=== PATIENT | female | born 1995 | race Caucasian/White ===

== ENCOUNTER 2021-07-16 13:09 | Emergency (ER) | payer OTHER, SELFPAY ==
[2021-07-16 13:16] VITALS: BP 116/73; PULSE 95; RESP 14; TEMP 36.6; O2SAT 100
--- NOTE | 2021-07-16 14:13 | ED.URI ---
HPI - URI/Sore Throat General Chief Complaint: Upper Respiratory Infection Stated Complaint: Sore Throat Time Seen by Provider: 07/16/21 14:08 Source: patient and RN notes reviewed Mode of arrival: ambulatory Limitations: no limitations History of Present Illness HPI Narrative: Patient presents today complaining of sore throat since yesterday and denies any additional symptoms to include shortness of breath, difficulty swallowing, or fever. She currently rates her pain 8/10 which increases with swallowing. She has been using some throat spray with mild relief. No recent antibiotic use. MD elicited complaint: sore throat Related Data Allergies Allergy/AdvReac Type Severity Reaction Status Date / Time No Known Allergies Allergy Verified 07/16/21 13:30 Review of Systems Review of Systems: CONSTITUTIONAL: Denies body aches, fever, chills, or sweats. EYES: Denies visual changes, redness, or discharge. ENT: Denies rhinorrhea, congestion, or otalgia.+ Sore throat CARDIOVASCULAR: Denies chest pain, palpitations, or edema. RESPIRATORY: Denies cough or dyspnea. GASTROINTESTINAL: Denies abdominal pain, nausea, vomiting, or diarrhea. GENITOURINARY: Denies dysuria or hematuria. SKIN: Denies rash, itching, or wounds. MUSCULOSKELETAL: Denies back pain, joint pain, or myalgia. NEUROLOGIC: Denies headache, numbness, tingling, or weakness. PSYCH: Denies depression or anxiety. PMFSH Comments At time of signature, I have reviewed and agree with nursing past medical, surgical, social and family history unless otherwise noted. Please see nursing chart for further information. There is no relevant family history pertinent to the presenting complaint Exam Narrative: GENERAL: Well-appearing, well-nourished, and in no acute distress. HEAD: Normocephalic, atraumatic. EYES: EOMI. No redness or drainage. Conjunctivae normal. ENT: Mucous membranes pink and moist. Nares clear. No rhinorrhea. TMs normal bilaterally. Throat moderately erythematous without edema or exudate. Uvula midline. NECK: Normal AROM. Supple. No lymphadenopathy. CHEST: No respiratory distress. Clear to auscultation. HEART: Regular rate and rhythm. No murmur appreciated. Normal peripheral pulses. EXTREMITIES: Normal range of motion. No edema. SKIN: Warm, dry, no rash. Capillary refill normal. Normal skin turgor. NEURO: No focal deficits. Alert and oriented x3. Gait steady. PSYCH: Normal affect. No signs of depression or anxiety. Course Course Level of Care: Express Care Visit Vital Signs Vital signs: Vital Signs Temperature 97.9 F 07/16/21 13:16 Pulse Rate 95 07/16/21 13:16 Respiratory Rate 14 07/16/21 13:16 Blood Pressure 116/73 07/16/21 13:16 Pulse Oximetry 100 07/16/21 13:16 Temperature 97.9 F 07/16/21 13:16 Pulse Rate 95 07/16/21 13:16 Respiratory Rate 14 07/16/21 13:16 Blood Pressure 116/73 07/16/21 13:16 Pulse Oximetry 100 07/16/21 13:16 Reviewed MDM - URI/Sore Throat Differential Diagnosis Differential diagnosis: Likely upper respiratory infection, pharyngitis and other (Strep throat) Lab Data Attestation: I reviewed the patient's lab results. Labs: Strep Screen Positive Group A Strep *(Reference Range: Negative)* Critical Care Time Critical Care Time Critical Care Time: No Discharge Plan Discharge Clinical Impression: Strep throat Patient Disposition: Home, Self-Care Condition: Stable Instructions: Strep Throat (DC) Additional Instructions: You have tested positive for strep throat today. Take the amoxicillin as prescribed until gone. You will be contagious for 48 hours after starting the antibiotic. Take an anti-inflammatory such as Aleve or ibuprofen. Follow-up with your doctor in 2 to 3 days if symptoms are not improving. Patient Language: Arabic Prescriptions: New amoxicillin 875 mg tablet 875 mg PO Q12H 10 Days Qty
== END 2021-07-16 14:21 | disposition home or self-care (01) ==
PROVIDERS: Emergency Provider Nurse Practitioner
DX: J02.0 Streptococcal pharyngitis (principal)
CPT/HCPCS: 87880; 99213; G0463

== ENCOUNTER 2021-08-22 15:51 | Emergency (ER) | payer OTHER, SELFPAY ==
[2021-08-22 15:58] VITALS: BP 115/60; PULSE 91; RESP 18; TEMP 37.1; O2SAT 100
--- NOTE | 2021-08-22 16:28 | ED.SKABFB ---
HPI - Skin/Abscess/Foreign Bdy General Chief complaint: Skin/Abscess/Foreign Body Stated complaint: lymph node on right side pain Time Seen by Provider: 08/22/21 16:00 Source: patient Mode of arrival: ambulatory Limitations: no limitations History of Present Illness HPI narrative: Jenni is a 26-year-old female patient presenting to the clinic today with complaints of sore throat and swollen lymph node x2 to 3 days. She denies any fever or chills. She reports that she has had some green nasal drainage that just started today. She denies any known exposure to anybody with strep, COVID, or influenza. Related Data Allergies Allergy/AdvReac Type Severity Reaction Status Date / Time No Known Allergies Allergy Verified 08/22/21 16:11 Review of Systems Review of Systems: Pertinent positives per HPI. Patient denies any fever, chills, rash, headache, visual changes, dizziness, shortness of breath, chest pain, palpitations, nausea, vomiting, diarrhea, constipation, abdominal pain, or any urinary issues. PMFSH Comments At the time of my signature, I reviewed and agree with the nursing past medical, surgical, social, and family history. There is no relevant family history pertinent to the patient complaint. Exam Narrative: General: Well-developed, well nourished, in no apparent distress Head: Normocephalic, atraumatic Eyes: Pupils equally round and reactive to light bilaterally, EOM intact, sclera and conjunctive clear, no discharge, lids normal Ears: TMs intact and dull, ear canals clear, no drainage, grossly hearing normal. Nose: Nares patent, clear nasal discharge, no inflammation, no sinus tenderness. Mouth: Oropharynx without lesions or masses, good dentition, MMM. Oropharynx red Neck: Supple, trachea midline, positive enlargement of right anterior cervical nodes, no thyroid masses or goiter palpable. Cardio: Regular rate and rhythm, s1 and s2 normal, no murmur appreciated. Resp: Clear to auscultation bilaterally anteriorly and posteriorly, no rhonchi, rales, wheezing or rubs Course Course Emergency Course: Portions of this record may have been created with voice recognition software. Level of Care: Express Care Visit Vital Signs Vital signs: Vital Signs Temperature 37.1 C 08/22/21 15:58 Pulse Rate 91 08/22/21 15:58 Respiratory Rate 18 08/22/21 15:58 Blood Pressure 115/60 08/22/21 15:58 Pulse Oximetry 100 08/22/21 15:58 Oxygen Delivery Room Air 08/22/21 15:58 Temperature 37.1 C 08/22/21 15:58 Pulse Rate 91 08/22/21 15:58 Respiratory Rate 18 08/22/21 15:58 Blood Pressure 115/60 08/22/21 15:58 Pulse Oximetry 100 08/22/21 15:58 Oxygen Delivery Room Air 08/22/21 15:58 Vital signs reviewed MDM - Skin/Abscess/Foreign Bdy MDM Narrative Medical decision making narrative: At the time of visit patient is resting comfortably on the exam table. She has a right anterior swollen lymph node and a sore throat. Strep screen was obtained and was for strep. I will give her a course of amoxicillin and supportive measures were discussed with the patient she voiced understanding of discharge instructions and agrees to the treatment plan. Differential Diagnosis Differential diagnosis: Likely other (Influenza, strep pharyngitis, URI, cervical lymphadenopathy) Lab Data Labs: Strep Screen Positive Group A Strep *(Reference Range: Negative)* Discharge Plan Discharge Clinical Impression: Strep pharyngitis Patient Disposition: Home, Self-Care Condition: Stable Instructions: Antibiotic Form, Strep Throat (ED) Additional Instructions: Strep screen positive in the clinic. Change toothbrush in 24 hours after the initiation of the antibiotic Take prescription medications only as prescribed-amoxicillin Increase fluids and stay well hydrated Tylenol/motrin for pain/fever Flonase and OTC antihistamines as di
== END 2021-08-22 16:37 | disposition home or self-care (01) ==
PROVIDERS: Emergency Provider Nurse Practitioner Family
DX: J02.0 Streptococcal pharyngitis (principal); E05.90 Thyrotoxicosis, unspecified without thyrotoxic crisis or storm
CPT/HCPCS: 87880; 99213; G0463

== ENCOUNTER 2021-09-12 13:31 | Emergency (ER) | payer OTHER, SELFPAY ==
--- NOTE | 2021-09-12 13:34 | ED.FEMALEGU ---
HPI - Female Genitourinary General Chief complaint: Urogenital-Female Stated complaint: Urinary Problem Time Seen by Provider: 09/12/21 13:34 Source: patient and RN notes reviewed History of Present Illness HPI Narrative: Patient is a 26-year-old female who presents the urgent care with complaints of a possible UTI due to cloudy urine and low back pain. Patient states that she was taking Azo up until this past Friday. States symptoms started on . Denies of any fever, nausea or vomiting. 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 Patient denies of any pyelonephritis, chronic UTIs or kidney stones. Denies of hematuria. No other acute complaints. No acute distress noted. Patient aware of the plan of care. Some parts of this dictation were generated by voice recognition software and may contain typographical and/or grammatical inaccuracies. Related Data Allergies Allergy/AdvReac Type Severity Reaction Status Date / Time No Known Allergies Allergy Verified 09/12/21 13:44 Review of Systems Review of Systems: CONSTITUTIONAL: Denies fever, chills, or sweats. EYES: Denies visual changes, redness, or discharge. ENT: Denies rhinorrhea, congestion, sore throat, or otalgia. CARDIOVASCULAR: Denies chest pain, palpitations, or edema. RESPIRATORY: Denies cough or dyspnea. GASTROINTESTINAL: Denies abdominal pain, nausea, vomiting, or diarrhea. GENITOURINARY: Reports of cloudy urine and left flank pain SKIN: Denies rash or itching. MUSCULOSKELETAL: Denies back pain, joint pain, or myalgia. NEUROLOGIC: Denies headache, numbness, or weakness. All other systems reviewed are negative, except as documented in HPI. PMFSH Comments At the time of my signature, I reviewed and agree with the nursing past medical, surgical, social, and family history. There is no relevant family history pertinent to the patient complaint. Exam Narrative: GENERAL: This is a well-nourished, well-developed patient, in no apparent distress. HEAD: normocephalic, atraumatic. EYES: PERRL. Sclera clear/white. Vision is grossly intact. EARS: External ears normal NOSE: External nose normal with no obvious nasal discharge, nares without redness, no rhinorrhea. THROAT: Mucous membranes moist NECK: Neck supple CARDIOVASCULAR: Regular rate and rhythm without murmurs, gallops, or rubs. RESPIRATORY: Clear to auscultation. Breath sounds equal bilaterally. No wheezes, rales, or rhonchi. GASTROINTESTINAL: Abdomen soft, non-tender, nondistended. Bowel sounds are active. SKIN: warm, intact with no suspicious lesions or rash, good texture and turgor. NEURO: awake, alert, and oriented to person, place and time. There were no obvious focal neurologic abnormalities. EXTREMITIES: No clubbing, cyanosis, or edema. BACK: Left CVA tenderness Course Course Level of Care: Express Care Visit Vital Signs Vital signs: Vital Signs Temperature 98.0 F 09/12/21 13:46 Pulse Rate 112 H 09/12/21 13:46 Respiratory Rate 16 09/12/21 13:46 Blood Pressure 113/82 09/12/21 13:46 Pulse Oximetry 100 09/12/21 13:46 Oxygen Delivery Room Air 09/12/21 13:46 Temperature 98.0 F 09/12/21 13:46 Pulse Rate 112 H 09/12/21 13:46 Respiratory Rate 16 09/12/21 13:46 Blood Pressure 113/82 09/12/21 13:46 Pulse Oximetry 100 09/12/21 13:46 Oxygen Delivery Room Air 09/12/21 13:46 Reviewed MDM - Female Genitourinary MDM Narrative Medical decision making narrative: Reviewed lab results with the patient. She is aware that urine analysis is likely indicative of a UTI due to slight bacteria and a trace of blood. Will treat to cover bacterial infection however if symptoms progress and you become nauseous, feverish, or vomiting?go to the emergency room. Our facility is unable to rule out kidney stones and if such is the case?she will need a CT scan and further evaluation. It is most important in your case considering you w
[2021-09-12 13:46] VITALS: BP 113/82; PULSE 112; RESP 16; TEMP 36.7; O2SAT 100
== END 2021-09-12 14:06 | disposition home or self-care (01) ==
PROVIDERS: Emergency Provider Nurse Practitioner Family
DX: N39.0 Urinary tract infection, site not specified (principal)
CPT/HCPCS: 81003; 87077; 87086; 87186; 99213; G0463

== ENCOUNTER 2022-05-23 15:48 | Emergency (ER) | payer OTHER, SELFPAY ==
[2022-05-23 16:01] VITALS: BP 125/89; PULSE 113; RESP 16; TEMP 37.7; O2SAT 100
--- NOTE | 2022-05-23 16:16 | ED.URI ---
HPI - URI/Sore Throat General Chief Complaint: Upper Respiratory Infection Stated Complaint: Fever/Headache Time Seen by Provider: 05/23/22 16:15 Source: patient and RN notes reviewed Mode of arrival: ambulatory Limitations: no limitations History of Present Illness HPI Narrative: 27-year-old female presents with concern for fever, headache, chills, body aches that started yesterday. She reports coworkers have been sick. Denies taking any medications for her symptoms. MD elicited complaint: cough and nasal congestion Related Data Allergies Allergy/AdvReac Type Severity Reaction Status Date / Time No Known Allergies Allergy Verified 09/12/21 13:44 Review of Systems Review of Systems: CONSTITUTIONAL: Reports malaise, chills, fever. EYES: Denies visual changes, redness, or discharge. ENT: Reports rhinorrhea, congestion, sinus pain. Denies otalgia and sore throat. CARDIOVASCULAR: Denies chest pain, palpitations, or edema. RESPIRATORY: Denies cough. Denies dyspnea. GASTROINTESTINAL: Denies abdominal pain, nausea, vomiting, diarrhea SKIN: Denies rash or itching. MUSCULOSKELETAL: Reports myalgia. NEUROLOGIC: Reports headache. All systems reviewed & are unremarkable except as noted in HPI and below PMFSH Comments At time of signature, agree with nursing past medical, surgical, social and family history. There is no relevant family history pertinent to the presenting complaint Exam Narrative: GENERAL: Nontoxic-appearing and in no acute distress. HEAD: Normocephalic EYES: PERRLA, conjunctivae clear ENT: Nares clear, turbinates edematous and erythematous, clear discharge. Mucous membranes moist. TM pearly bueno with dull light reflex bilaterally; no tragal tenderness. Oropharynx not erythematous without lesions. Tonsils not enlarged and without exudate, no drooling, no hoarseness, no trismus, uvula midline. NECK: Supple. No lymphadenopathy CHEST: Clear to auscultation, breath sounds equal. No wheezing, rhonchi, rales, or stridor. No respiratory distress, speaks in full sentences. HEART: Regular rate and rhythm. No murmur heard. SKIN: Warm, dry, no rash. NEURO: Alert and oriented x3. PSYCH: Normal mood and affect Course Course Emergency Course: Patient is aware of diagnosis, understands and agrees to treatment plan. Anticipatory guidance given. Patient agrees to follow-up as directed and is aware of reasons to seek care at the emergency department. Portions of this record may have been created with voice recognition software Level of Care: Express Care Visit Vital Signs Vital signs: Vital Signs Temperature 99.8 F H 05/23/22 16:01 Pulse Rate 113 H 05/23/22 16:01 Respiratory Rate 16 05/23/22 16:01 Blood Pressure 125/89 05/23/22 16:01 Pulse Oximetry 100 05/23/22 16:01 Oxygen Delivery Room Air 05/23/22 16:01 Temperature 99.8 F H 05/23/22 16:01 Pulse Rate 113 H 05/23/22 16:01 Respiratory Rate 16 05/23/22 16:01 Blood Pressure 125/89 05/23/22 16:01 Pulse Oximetry 100 05/23/22 16:01 Oxygen Delivery Room Air 05/23/22 16:01 Reviewed. MDM - URI/Sore Throat MDM Narrative Medical decision making narrative: Differential diagnosis considered: Beverly virus, strep pharyngitis, allergic rhinitis, upper respiratory tract infection, sinusitis, rhinosinusitis, nasopharyngitis. viral pharyngitis, otitis media, otitis externa, pneumonia, bronchitis, viral cough syndrome, viral syndrome, and influenza. Exam findings show no acute concerns or changes; patient is non-toxic appearing and is in no distress. Patient is appropriate for outpatient treatment and follow-up. Lab Data Attestation: I reviewed the patient's lab results. Labs: Influenza A Screen Negative Reference Range: Negative Influenza B Screen Negative Reference Range: Negative Strep Screen Presumpt
== END 2022-05-23 16:29 | disposition home or self-care (01) ==
PROVIDERS: Emergency Provider Nurse Practitioner; PCP Emergency Medicine
DX: B34.9 Viral infection, unspecified (principal); Z20.822 Contact with and (suspected) exposure to COVID-19
CPT/HCPCS: 87081; 87426; 87804; 87880; 99213; C9803; G0463

== ENCOUNTER 2023-02-04 12:11 | Emergency (ER) | payer OTHER, SELFPAY ==
[2023-02-04 12:23] VITALS: BP 108/65; PULSE 94; RESP 16; TEMP 36.6; O2SAT 98
--- NOTE | 2023-02-04 12:47 | ED.GENADULT ---
HPI - General Adult General Chief complaint: Upper Respiratory Infection Stated complaint: Sore Throat Source: patient Mode of arrival: ambulatory Limitations: no limitations History of Present Illness HPI narrative: PATIENT PRESENTS FOR EVALUATION OF A PAINFUL SORE BENEATH HER TONGUE FOR THE LAST 2 DAYS. SHE HAS BEEN EATING A LOT OF POTATO CHIPS SLIGHTLY. TODAY SHE NOTICED A SLIGHT SORE THROAT. SHE HAS SOME MOUTHWASH WHICH SHE SEEMED TO TOLERATE WELL. NO FEVER, CHILLS, COUGH, EAR PAIN OR ANY OTHER SYMPTOMS. SHE USES NICOTINE STICKS . Related Data Allergies Allergy/AdvReac Type Severity Reaction Status Date / Time No Known Allergies Allergy Verified 09/12/21 13:44 Review of Systems Review of Systems: CONSTITUTIONAL: DENIES FEVER, CHILLS, OR SWEATS. EYES: DENIES VISUAL CHANGES, REDNESS, OR DISCHARGE. ENT: REPORTS PAINFUL SORE BENEATH HER TONGUE. REPORTS MILD SORE THROAT. DENIES RHINORRHEA, CONGESTION, OR OTALGIA. CARDIOVASCULAR: DENIES CHEST PAIN, PALPITATIONS, OR EDEMA. RESPIRATORY: DENIES COUGH OR DYSPNEA. GASTROINTESTINAL: DENIES ABDOMINAL PAIN, NAUSEA, VOMITING, OR DIARRHEA. GENITOURINARY: DENIES DYSURIA OR HEMATURIA. SKIN: DENIES RASH OR ITCHING. MUSCULOSKELETAL: DENIES BACK PAIN, JOINT PAIN, OR MYALGIA. NEUROLOGIC: DENIES HEADACHE, NUMBNESS, DIZZINESS, OR WEAKNESS. PSYCHIATRIC: DENIES ANXIETY OR DEPRESSION. [facility] Past Medical History Medical History No pertinent past medical history Surgical History Surgical History No pertinent past surgical history Family History Family History Mother Family history non-contributory Social History Social History (Updated 02/04/23 @ 12:50 by Wesley Jiang, [facility], ) Smoking status: Current every day smoker Substance use: never Living arrangements: with family Gender identity (if verbalized by the patient): Female Spiritual care concerns: No Exam Narrative: GENERAL: WELL-APPEARING, WELL-NOURISHED, AND IN NO ACUTE DISTRESS. HEAD: NORMOCEPHALIC, ATRAUMATIC. EYES: PERRLA AND EOMI. ENT: NARES CLEAR, NO RHINORRHEA OR EPISTAXIS. MUCOUS MEMBRANES MOIST. OROPHARYNX WITHOUT TONSILLAR HYPERTROPHY EXUDATE. THERE IS AN APPROXIMATELY 2 MM ULCERATIVE LESION BENEATH THE RIGHT SIDE OF HER TONGUE. bILATERAL TMS PEARLY MENDES NONBULGING NECK: SUPPLE. NO ADENOPATHY OR MASSES. NO CAROTID BRUITS OR JVD CHEST: CLEAR TO AUSCULTATION. NO RESPIRATORY DISTRESS. NO WHEEZES RALES OR RHONCHI HEART: REGULAR RATE AND RHYTHM. NO MURMUR HEARD. NORMAL PERIPHERAL PULSES. ABDOMEN: SOFT, NONTENDER, NONDISTENDED, NORMAL ACTIVE BOWEL SOUNDS. EXTREMITIES: NORMAL RANGE OF MOTION. NO EDEMA. SKIN: WARM, DRY, NO RASH. NEURO: NO FOCAL DEFICITS. ALERT AND ORIENTED X3. PSYCH: NORMAL MOOD AND AFFECT. Course Course Emergency Course: THIS IS A 27-YEAR-OLD FEMALE WHO PRESENTED FOR EVALUATION OF A PAINFUL LESION BENEATH HER TONGUE. EXAM IS CONSISTENT WITH A CANKER SORE. ADVISED ORAL HYGIENE AND SPECIFIC FOODS TO AVOID WHICH COULD AGGRAVATE HER SYMPTOMS. SHE SHOULD FOLLOW UP WITH HER PRIMARY PROVIDER. RECOMMEND SMOKING CESSATION. PATIENT IN AGREEMENT WITH PLAN OF CARE. Level of Care: Express Care Visit Vital Signs Vital signs: Vital Signs Temperature 36.6 C 02/04/23 12:23 Pulse Rate 94 02/04/23 12:23 Respiratory Rate 16 02/04/23 12:23 Blood Pressure 108/65 02/04/23 12:23 Pulse Oximetry 98 02/04/23 12:23 Oxygen Delivery Room Air 02/04/23 12:23 Temperature 36.6 C 02/04/23 12:23 Pulse Rate 94 02/04/23 12:23 Respiratory Rate 16 02/04/23 12:23 Blood Pressure 108/65 02/04/23 12:23 Pulse Oximetry 98 02/04/23 12:23 Oxygen Delivery Room Air 02/04/23 12:23 Medical Decision Making Vital Signs Vital Signs: Vital Signs Temperature 36.6 C 02/04/23 12
== END 2023-02-04 12:50 | disposition home or self-care (01) ==
PROVIDERS: Emergency Provider Nurse Practitioner; PCP Family Medicine
DX: K12.0 Recurrent oral aphthae (principal); F17.200 Nicotine dependence, unspecified, uncomplicated
CPT/HCPCS: 87081; 87880; 99213; G0463

== ENCOUNTER 2023-04-05 09:44 | Emergency (ER) | payer OTHER, SELFPAY ==
[2023-04-05 09:56] VITALS: BP 116/66; PULSE 84; RESP 16; TEMP 36.6; O2SAT 100
--- NOTE | 2023-04-05 10:56 | ED.GENADULT ---
HPI - General Adult General Chief complaint: Back Pain/Injury Stated complaint: Left Flank Pain Source: patient Mode of arrival: ambulatory Limitations: no limitations History of Present Illness HPI narrative: Patient presents for evaluation of left flank pain since last night. Pain is constant, stabbing, rated 7/10 in severity. She states 2 days ago her period started and ended yesterday. She has a history of regularly spaced menstrual periods and the state date of her most recent period is consistent with her normal pattern, however duration of periods is usually seven days. She reports fatigue and generalized body aches. She denies any fever, chills, nausea, vomiting, abdominal pain, urinary symptoms, vaginal discharge. She is not sexually active. She was previously consuming ETOH daily but about 1.5 months ago, changed to only drinking a few beverages containing alcohol on the weekends. She does use marijuana regularly. No history of abdominal surgeries. Denies any change in bowel pattern. 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 She did not realize this until she was in her 20s. Related Data Allergies Allergy/AdvReac Type Severity Reaction Status Date / Time No Known Allergies Allergy Verified 04/05/23 09:55 Review of Systems Review of Systems: CONSTITUTIONAL: Reports fatigue. denies fever, chills, or sweats. EYES: Denies visual changes, redness, or discharge. ENT: Denies rhinorrhea, congestion, sore throat, or otalgia. CARDIOVASCULAR: Denies chest pain, palpitations, or edema. RESPIRATORY: Denies cough or dyspnea. GASTROINTESTINAL: Reports left flank pain. Denies abdominal pain, nausea, vomiting, or diarrhea. GENITOURINARY: Denies dysuria or hematuria. SKIN: Denies rash or itching. MUSCULOSKELETAL: Reports generalized body aches NEUROLOGIC: Denies headache, numbness, dizziness, or weakness. PSYCHIATRIC: Denies anxiety or depression. [facility] Past Medical History Medical History No pertinent past medical history Surgical History Surgical History No pertinent past surgical history Family History Family History Mother Family history non-contributory Social History Social History Smoking status: Current every day smoker Alcohol intake: current Alcohol use details: Alcohol on the weekends. 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 HEAD: Normocephalic, atraumatic. EYES: PERRLA and EOMI. ENT: Nares clear, no rhinorrhea or epistaxis. Mucous membranes moist. Oropharynx without tonsillar hypertrophy exudate or other lesions. Bilateral TMs pearly bueno nonbulging NECK: Supple. No adenopathy or masses. No carotid bruits or JVD CHEST: Clear to auscultation. No respiratory distress. No wheezes rales or rhonchi HEART: Regular rate and rhythm. No murmur heard. Normal peripheral pulses. ABDOMEN: Soft, nontender, nondistended, normal active bowel sounds. Mild left-sided CVA tenderness EXTREMITIES: Normal range of motion. No edema. SKIN: Warm, dry, no rash. NEURO: No focal deficits. Alert and oriented x3. PSYCH: Normal mood and affect. Course Course Emergency Course: This is a 28-year-old female who presented for evaluation of left flank pain. She has blood in her urine today and trace leukocytes. I did recommend she go to the emergency department for CT imaging and labs. Her mono, COVID and flu were negative here. was negative. She declined going to the em
== END 2023-04-05 10:58 | disposition left against medical advice (07) ==
PROVIDERS: Emergency Provider Nurse Practitioner; PCP Family Medicine
DX: N39.0 Urinary tract infection, site not specified (principal); B96.20 Unspecified Escherichia coli [E. coli] as the cause of diseases classified elsewhere; R31.9 Hematuria, unspecified; Z20.822 Contact with and (suspected) exposure to COVID-19; F17.200 Nicotine dependence, unspecified, uncomplicated; F12.90 Cannabis use, unspecified, uncomplicated
CPT/HCPCS: 36416; 81003; 81025; 86308; 87077; 87081; 87086; 87186; 87426; 87804; 87880; 99213; G0463

== ENCOUNTER 2023-06-28 10:29 | Emergency (ER) | payer SELFPAY ==
[2023-06-28 10:40] VITALS: BP 127/70; PULSE 122; RESP 18; TEMP 39.4; O2SAT 98
--- NOTE | 2023-06-28 10:48 | ED.GENADULT ---
HPI - General Adult General Chief complaint: Upper Respiratory Infection Stated complaint: Headache/Fever/Body Ache Source: patient, RN notes reviewed and old records reviewed Mode of arrival: ambulatory Limitations: no limitations History of Present Illness HPI narrative: 28-year-old female to Express Care for complaint of headache, Chills, myalgias, cough, nasal congestion for days. Patient denies alleries, Nausea, vomiting, diarrhea. Patient attempted to treat at home with [id number] medication without relief. patient able to tolerate fluids by mouth. An exam room patient appears ill and uncomfortable. No acute distress. Related Data Home Medications Medication Instructions Recorded Confirmed No Home Medications 06/28/23 06/28/23 Allergies Allergy/AdvReac Type Severity Reaction Status Date / Time No Known Allergies Allergy Verified 06/28/23 10:37 Review of Systems Review of Systems: All systems reviewed & are unremarkable except as noted in HPI and below Constitutional: Constitutional: Reports as per HPI, Reports body ache(s), Reports chills, Reports difficulty sleeping, Reports excessive sweating, Reports fever(s), Reports headache(s) and Reports poor appetite Eyes: Eyes: Reports no additional eye complaints ENT: Reports as per HPI and Reports nasal congestion Cardiovascular: Cardiovascular: Reports no additional cardiovascular complaints, Denies chest pain and Denies dyspnea Respiratory: Respiratory: Reports no additional respiratory complaints, Reports cough and Denies dyspnea Musculoskeletal: Musculoskeletal: Reports as per HPI and Reports myalgias Neurologic: Reports system reviewed and no additional complaints, except as documented Psychiatric: Psychiatric: Reports no additional psychiatric complaints [facility] Past Medical History Medical History No pertinent past medical history Surgical History Surgical History No pertinent past surgical history Family History Family History Mother Family history non-contributory Social History Social History Smoking status: Current every day smoker Alcohol intake: current Alcohol use details: Alcohol on the weekends. 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 There is no relevant family history pertinent to the patient complaint. Exam Const: General: cooperative, no acute distress, well developed, alert, ill appearing, tired appearing, uncomfortable and well nourished Nutritional Appearance: well nourished Orientation/consciousness: patient oriented x3 Limitations: no limitations HENMT: Head: normal to inspection Ears: external ears normal Face/Nose/Sinus: Normal external nose present, Normal nares present, normal facial exam, No erythema and No edema Face and sinus: normal facial exam, no erythema and no edema Mouth: Yes Normal oral and palatal mucosa present Throat: posterior oropharynx abnormal erythema and postnasal drainage Eyes: General: appearance normal, both eyes and all related structures Neck: Neck: normal visual inspection, full ROM and no meningeal signs Lymphatic: no lymphadenopathy noted and no lymphedema noted Chest: Chest palpation & inspection: normal inspection of the chest Resp: Effort & Inspection: normal respiratory effort and able to speak in complete sentences Auscultation: clear to auscultation bilaterally Cardio: Jugular venous disten
[2023-06-28 11:18] VITALS: PULSE 109; RESP 16; TEMP 39.4; O2SAT 98
== END 2023-06-28 11:18 | disposition home or self-care (01) ==
PROVIDERS: Emergency Provider Nurse Practitioner Family; PCP Family Medicine
DX: J10.1 Influenza due to other identified influenza virus with other respiratory manifestations (principal); Z20.822 Contact with and (suspected) exposure to COVID-19; F17.200 Nicotine dependence, unspecified, uncomplicated; F12.90 Cannabis use, unspecified, uncomplicated
CPT/HCPCS: 87081; 87426; 87804; 87880; 99213; G0463

== ENCOUNTER 2024-01-17 11:50 | Emergency (ER) | payer OTHER, SELFPAY ==
[2024-01-17 11:56] VITALS: BP 124/79; PULSE 83; RESP 20; TEMP 36.8; O2SAT 100
--- NOTE | 2024-01-17 12:08 | ED_ITS ---
HPI - Female Genitourinary General Chief complaint: Urogenital-Female Stated complaint: Poss UTI History of Present Illness HPI Narrative: Patient presents with concern for urinary tract infection. Patient denies any flank pain no gross hematuria no abdominal pain no pelvic pain and no concern for STDs. Related Data Allergies Allergy/AdvReac Type Severity Reaction Status Date / Time No Known Allergies Allergy Verified 06/28/23 10:37 Review of Systems Review of Systems: CONSTITUTIONAL: Denies chills, or sweats. Reports fever and generalized body aches EYES: Denies visual changes, redness, or discharge. ENT: Denies otalgia. Reports nasal congestion runny nose and sore throat CARDIOVASCULAR: Denies chest pain, palpitations, or edema. RESPIRATORY: Denies dyspnea. Reports occasional cough GASTROINTESTINAL: Denies abdominal pain, nausea, vomiting, or diarrhea. GENITOURINARY: Denies dysuria or hematuria. SKIN: Denies rash or itching. MUSCULOSKELETAL: Denies back pain, joint pain, or myalgia. Reports generalized body aches NEUROLOGIC: Denies headache, numbness, or weakness. PSYCHIATRIC: Denies anxiety or depression. [facility] Past Medical History Medical History No pertinent past medical history Surgical History Surgical History No pertinent past surgical history Family History Family History Mother Family history non-contributory Social History Social History Smoking status: Current every day smoker Alcohol intake: current Alcohol use details: Alcohol on the weekends. 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 There is no relevant family history pertinent to the presenting complaint Exam Narrative: The patient is a well-developed, well-nourished in no acute distress. SKIN: Skin is warm and dry without erythema, swelling or exudate. There is good turgor. No tenting. HEAD: Atraumatic. Normocephalic. No temporal or scalp tenderness. EYES: Moist and bright. Sclera and conjunctivae normal. No discharge. PERRLA. Extraocular motions intact. Gross visual acuity intact. EARS: Pinna is normal shape and contour. Clear external auditory canals. TM pearly cross with good cone of light, no erythema or suppuration. Bilateral cerumen noted no gross hearing deficit. NOSE: pink, moist mucosa with good air movement. Clear rhinorrhea without nasal flaring. Septum midline. Mouth: moist mucous membranes. THROAT; mild erythema noted to posterior oropharynx with moderate postnasal drainage. Without exudate or ulceration.. Uvula midline. Normal movement of soft palate. NECK: Supple and nontender with full range of motion without discomfort. No meningeal signs. LUNGS: Equal and bilateral breath sounds without wheezes, rales or rhonchi. CHEST: The chest wall is without retractions or use of accessory muscles. HEART: Has a regular rate and rhythm without murmur, gallops, click or rub. ABDOMEN: Soft, nontender with positive active bowel sounds. No rebound tenderness. EXTREMITIES: Without cyanosis, clubbing or edema. Equal 2+ distal pulses and 2 second capillary refill noted. NEUROLOGIC: alert, active, . The patient moves all extremities with normal muscle strength. Normal muscle tone is noted. Normal coordination is noted. NO focal neurological findings noted. Course Course Level of Care: Express Care Visit Vital Signs Vital signs: Vital Signs Temperature 36.8 C 01/17/24 11:56 Pulse Rate 83 01/17/24 11:56 Respiratory Rate 20 01/17/24 11:56 Blood Pressure 124/79 01/17/24 11:56 Pulse Oximetry 100 01/17/24 11:56 Oxygen Delivery Room Air 01/17/24 11:56 Temperature 36.8 C 01/17/24 11:56 Pulse Rate 83 01/17/24 11:56 Respiratory Rate 20 01/17/24 11:56 Blood Pressure 124/79 01/17/24 11:56 Pulse Oximetry 100 01/17/24 11:56 Oxygen Delivery Room Air 01/17/24 11:56 Discharge Plan Discharge Clinical Impression: Dysuria Patient Disposition: Home, Self-Care Condition: Stable Instructions: Antibiotic Form, Dysuria (ED) Additional Instructions: Increase fluids especially cranberry juice and water Avoid caffeine and carbonated beverages Antibiotic as directed Medicine as directed--cautioned it will cause your urine to be bright orange AZO over the counter Tylenol/ibuprofen for pain or fever Follow-up with her primary care provider if further problems or concerns Recheck if you have fever over 101, nausea and vomiting -If you have any worsening of symptoms or any other concerns please go to the ED immediately. Prescriptions: New nitrofurantoin monohyd/m-cryst [Macrobid] 100 mg capsule 100 mg PO Q12H 5 Days Qty: 10 0RF Rx Instructions: must administer with a meal/food Follow-up/Referrals: PHYSICIAN,GRADUATE STUDENT [Primary Care Provider] - Stand Alone Forms: Work/School Release IP
[2024-01-17 12:14] LABS: EDUAAPPEAR Cloudy; EDUABILI Negative (Negative); EDUABLOOD 2+ (Negative); EDUACOLOR1 Yellow; EDUAGLUCOSE Negative (Negative); EDUAKETONE Negative (Negative); EDUALEUKO 2+ (Negative); EDUANITRATE Negative (Negative); EDUAPROTEIN Trace (Negative); EDUASPGRAVITY 1.025; EDUAUROBILI 0.2
== END 2024-01-17 12:17 | disposition home or self-care (01) ==
PROVIDERS: Emergency Provider Nurse Practitioner Family
DX: R30.0 Dysuria (principal); B96.4 Proteus (mirabilis) (morganii) as the cause of diseases classified elsewhere; F17.200 Nicotine dependence, unspecified, uncomplicated; F12.90 Cannabis use, unspecified, uncomplicated
CPT/HCPCS: 81003; 87086; 87186; 99213; G0463

== ENCOUNTER 2025-03-03 08:37 | Emergency (ER) | payer OTHER, SELFPAY ==
[2025-03-03 08:42] VITALS: BP 125/89; PULSE 93; RESP 16; TEMP 36.5; O2SAT 99
--- OUTSIDE RECORDS SUMMARY | 2025-03-03 08:45 | XMS_ITS | Clinical Summary ---
Author Organization [facility] Address [address] [place] [address] Care Team Providers Care Supervisor [place] Name Role Phone Unavailable Primary Care Provider Unavailabl e Source Comments [facility],non-owned Affiliates and Associated Physician Practices is amultiple site organization consisting of ambulatory clinics and hospital sitesin [place], [place], [place] and [place]. This disclosure is being madepursuant to the Care Everywhere program and may not contain all information available regarding this patient. Last updated 17.[employer] [facility] Allergies No known active allergies Medications * Be aware that medications may not be up to date on this document. Alwaysverify current medications with the patient. 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 Gender Identity Not on file Sexual Orientation Not on file Last Filed Vital Signs Vital Sign Reading Time Taken Comments Blood Pressure 110/68 07/06/2020 4:07 PM CDT Pulse 94 07/06/2020 4:07 PM CDT Temperature 37.1 C (98.7 F) 07/06/2020 4:07 PM CDT Respiratory Rate 16 07/06/2020 4:07 PM CDT Oxygen Saturation 98% 07/06/2020 4:07 PM CDT Inhaled Oxygen Concentration - - Weight 46.7 kg (103 lb) 07/06/2020 4:07 PM CDT Height 157.5 cm (5' 2) 07/06/2020 4:07 PM CDT Body Mass Index 18.84 07/06/2020 4:07 PM CDT Plan of Treatment Health Maintenance Due Date Last Done Comments HIV SCREENING 02/24/2012 HEPATITIS C SCREENING 02/19/2015 DTAP/TDAP/TD VACCINES (1 - Tdap) 02/24/2016 HEPATITIS B VACCINE (1 of 3 - 19+ 3-dose series) 02/24/2016 HPV VACCINE (1 - 3-dose SCDM series) 02/24/2024 DEPRESSION SCREENING 03/17/2024 COVID-19 VACCINE (1 - 2024-2 6 season) 2024 INFLUENZA VACCINE (#1) 2024 0, 05/19/2013 ZOSTER VACCINE (1 of 2) 2047 HIB VACCINE Aged Out No longer eligi ble based on patient's age to complete this topic MENINGOCOCCAL (Group B) VACCINE SHARED DECISION-MAKING Aged Out No longer eligible based on patient's age to complete this topic MENINGOCOCCAL GROUPS A/C/Y/W VACCINE Aged Out No longer eligible b ased on patient's age to complete this topic PNEUMOCOCCAL VACCINE Aged Out No long er eligible based on patient's age to complete this topic Insurance [facility]
--- OUTSIDE RECORDS SUMMARY | 2025-03-03 08:45 | XMS_ITS | Clinical Summary ---
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 10 Tab 10/07/2018 Active Social History Tobacco Use Types Packs/Day Years Used Date Smoking Tobacco: Never Smokeless Tobacco: Never Alcohol Use Standard Drinks/Week Comments Yes 0 (1 standard drink = 0.6 oz pur e alcohol) socially AUDIT-C Answer Date Recorded Frequency of Alcohol Consumption Never 08/01/2018 Average Number of Drinks Not on file 019 Frequency of Binge Drinking Not on file 07/15 Comments No Sex and Gender Information Value Date Recorded Sex Assigned at Not on file Legal Sex Female 12:41 AM CDT Gender Identity Not on file Sexual Orientation Not on file Last Filed Vital Signs Vital Sign Reading Time Taken Comments Blood Pressure 122/70 02/17/2022 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 Pulse 114 02/17/2022 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 Temperature 37.2 C (99 F) 02/17/2022 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 Respiratory Rate 18 02/17/2022 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 Oxygen Saturation 100% 02/17/2022 9:46 PM HARNESS INSPECTOR Inhaled Oxygen Concentration - - Weight 53.5 kg (118 lb) 02/17/2022 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 Height 157.5 cm (5' 2) 02/17/2022 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 Body Mass Index 21.58 02/17/2022 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 Plan of Treatment Health Maintenance Due Date Last Done Comments Hepatitis C Virus (HCV) Screening 1997 Varicella Immunization (1 of 2 - 13+ 2-dose series) 2010 Influenza Immunization (#1) 2024 02/02/2020, 0 05/19/2013 SARS-COV-2 Immunization ( - season) 2024 Respiratory Syncytial Virus (RSV) Immunization (Adult) (1 - 1-dose 75+ series) 02/24/2072 Hepatitis B Immunization Completed 998, 1997, 1997 Human Papillomavirus (HPV) Immunization Completed 06/04/2010, 01/26/2009, 11/25/2008 Meningococcal Immunization (ACWY) Completed 05/19/2013, 11/25/2008 DTaP/Tdap/Td Immunization Discontinued 2019, 11/25/2008, 02/24/2002, Additional history exists TdaP Immunization Completed 08/10/2019, 11/25/2008 Pneumococcal Immunization Combined Aged Out No longer eligible based on patient's age to complete this topic Rotavirus Immunization Aged Out No lo nger eligible based on patient's age to complete this topic Insurance MEDICAID [place] Care Teams Wallet Assembler Relationship Specialty Start Date End Date Provider, None [place] PCP - General 08/01/18
--- OUTSIDE RECORDS SUMMARY | 2025-03-03 08:48 | XMS_ITS | Clinical Summary ---
Author Organization [facility] Address [address] [place] [address] Care Team Providers Care Automotive Service Writer Name Role Phone Cori Parkinson MD Primary Care Provider + [phone] Janki Rooney DO Unavailable [phone] Allergies No known active allergies Medications omeprazole (PriLOSEC) 40 mg capsule Take 1 capsule (40 mg total) by mouth daily 30 capsule 11 09/10/2024 6 Active ibuprofen (ADVIL,MOTRIN) 600 mg tabletIndicatio ns:Cramps Take 1 tablet (600 mg total) by mouth every 6 (six) hours as needed for pain 60 tablet 1 10/16/2024 Active oxyCODONE-aceta minophen (PERCOCET) 5-325 mg per tabletIndicatio ns:Pain Take 1-2 tablets by mouth every 4 (four) hours as needed for pain 10 tablet 12/24/2024 Active docusate sodium (COLACE) 100 mg capsuleIndicati ons:constipatio n Take 1 capsule (100 mg total) by mouth 2 (two) times a day with a glass of water 60 capsule 12/24/2024 Active Active Problems Problem Noted Date Diagnosed Date Request for sterilization 12/01/2024 38 weeks gestation of 10/14/2024 Rh negative state in antepartum period 5 Overview (08/10/2024): S/p Rhogam 08/10/24 Rubella non-immune status, antepartum 04/30/2024 Encounter for supervision of normal in first trimester 04/27/2024 Overview (04/30/2024): Dated by 13w6d PNL: A-/NI/-/-, NR, Hep C NR GC/CT: neg UCx: neg Pap: collected today Genetics: discussed, pt to check with insurance on NIPT History of delivery 04/27/2024 Overview (04/27/2024): at 33 weeks in G1. Pt states she had been in pain so went to L&D and was found to be complete and subsequently delivered. She reports no issues prior in the . She was told she had an infection and also that the shape of her uterus caused the delivery. Discussed PTL vs cervical insufficiency with the patient. This sounds more consistent with the former. Records requested. Will at least plan for cervical length screening. 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 It is possible it is uterus biconis bicollus where there is only one cervix but two canals. Will await formal read but at minimum plan for growth US in 3rd trimester. Vaping nicotine dependence, non-tobacco product 04/27/2024 Overview (04/27/2024): S/p counseling. Cessation recommended. Pt states she is working on it. Marijuana use 04/27/2024 Overview (04/27/2024): S/p counseling. Cessation recommended. Pt states she is working on it. Resolved Problems Problem Noted Date Diagnosed Date Resolved Date Abnormal results of thyroid function studies 04/27/2024 Assessment & Plan (11/07/2022 8:39 AM CDT): Reports she was diagnosed with hyperthyroidism in 2019. Never received treatment. Is now experiencing the same symptoms she did at that time, especially the hair loss/thinning hair, varying energy levels, fluctuating weight, not sleeping. TSH/T3/T4 are WNL. CMP, CBC from 03/07 WNL. Discussed with patient other potential causes of these symptoms, such as anxiety. She is experiencing stressors in her life and admits to feeling anxious. Discussed with patient some strategies to manage anxiety including: deep breathing, meditation, stretching, and a consistent bedtime routine. Encouraged counseling- she does not wish to try at this time If she wishes to discuss medication for anxiety she can schedule an appt with Dr. SARGENT. Annual physical exam 07/31/2022 025 Assessment & Plan (07/31/2022 11:19 AM CDT): Doing well. BMI:21 Normal Routine labs ordered - None Preventative Screening Due: Pap scheduled Dietary and exercise recommendations given today. Recommend exercise at least 30 minutes moderate to vigorous exercise and some strength training most days of the week. (minimum 150 minutes weekly) Discussed MyPlate recommendations and increasing fruits and vegetables Age appropriate counseling provided - Safe sex practices, Seat belt use, alcohol/drug avoidance Vaccines due - Up to date RTC annually for f/u Dental abscess 04/20/2022 04/27/2024 Encounters Date Type Department Care Team Description 12/31/2024 1:10 PM CDT Office Visit [facility] [address] [place] [address] Janki Rooney, Status post bilateral salpingectomy (Primary Dx) 12/24/2024 8:06 AM CDT Anesthesia Event [facility] Operating Room [address] [place] [address] Shima Olson MD Alexander, Jeffrey Michael, 12/24/2024 7:45 AM CDT - 12/24/2024 9:15 AM CDT Surgery [facility] Operating Room [address] [place] [address] Janki Rooney DO LAPAROSCOPIC SALPINGECTOMY 12/24/2024 6:07 AM CDT - 12/24/2024 10:46 AM CDT Hospital Encounter [facility] Operating Room [address] [place] [address] Janki Rooney DO Request for sterilization Discharge Disposition: Discharge to home or self care from Last 3 Months Immunizations Immunization Administration Dates Next Due DTP 03/23/1999, 8,1997,06/10 DTaP 02/24/2002 HPV, Quadrivalent 06/04/2010,01/26/2009,11/26/19 09 Hep A, Pediatric 06/04/2010,11/25/2008 Hep B, Adolescent or Pediatric 01/26/1998,1997,1997 HiB 03/23/1999,1997,1997 IPV 02/24/2002, 0,1997,06/10 Influenza, Quadrivalent, Spl it, Preservative Free, Intramuscular 02/02/2020,05/19/2013 Influenza, Split 06/04/2010 MMR 10/16/2024, 0,02/24/2002,03/23 Meningococcal MCV4P (Menactra) 05/19/2013,2008 Rho (D) Immune Globulin 09/16/2019,08/10/2019 Tdap 08/10/2024,08/10/2019,11/25/2008 Surgical History Surgery Date Site/Laterality Comments NO PAST SURGERIES Medical History Medical History Date Comments Kidney infection Acid reflux Hyperthyroidism Family History Medical History Relation Name Comments Coronary artery disease Other 1 Fami ly history of Coronary artery disease; Kidney disease Other 2 Family histor y of Renal disease; Relation Name Status Comments Other 1 Other 2 Social History Tobacco Use Types Packs/Day Years Used Date Smoking Tobacco: Every Day Vaping Smokeless Tobacco: Never Tobacco Cessation:Ready to Q uit: No; Counseling Given: Yes Alcohol Use Standard Drinks/Week Comments Yes 6 (1 standard drink = 0.6 oz pur e alcohol) [facility] Utilities Answer Date Recorded In the past 12 months has th e [employer], gas, oil, or water [employer] threatened to shut off services in your home? No 10/14/2024 Humiliation, Afraid, Rape, and Kick questionnair e Answer Date Recorded Within the last year, have y ou been afraid of your partner or ex-partner? No 10/14/2024 Within the last year, have y ou been humiliated or emotionally abused in other ways by your partner or ex-partner? No Within the last year, have y ou been kicked, hit, slapped, or otherwise physically hurt by your partner or ex-partner? No 10/14/2024 Within the last year, have y ou been raped or forced to have any kind of sexual activity by your partner or ex-partner? No 10/14/2024 Social Connection and Isolation Panel Answer Date Recorded In a typical week, how many times do you talk on the phone with family, friends, or neighbors? More than three times a week 10/14/2024 How often do you get togethe r with friends or relatives? Once a week 10/14/2024 How often do you attend chur ch or taoist services? Never 10/14/2024 Do you belong to any clubs o r organizations such as episcopalian groups, unions, fraternal or athletic groups, or school groups? No 10/14/2024 How often do you attend meet ings of the clubs or organizations you belong to? Never 10/14/2024 Are you , , di vorced, , never , or living with a partner? Living with partner 10/14/2024 Overall Financial Resource Strain (CARDIA) Answe r Date Recorded How hard is it for you to pa y for the very basics like food, housing, medical care, and heating? Not hard at all 10/14/2024 PHQ-2 Answer Date Recorded PHQ-2 Total Score (If total score is 3 or more points, staff should administer the PHQ-9) 0 10/14/2024 [facility] of Occupat ional Health - Occupational Stress Questionnaire Answer Date Recorded Do you feel stress - tense, restless, nervous, or anxious, or unable to sleep at night because your mind is troubled all the time - these days? Not at all 10/14/2024 Exercise Vital Sign Answer Date Recorde d On average, how many days pe r week do you engage in moderate to strenuous exercise (like a brisk walk)? 0 days 10/14/2024 On average, how many minutes do you engage in exercise at this level? 0 min 10/14/2024 Hunger Vital Sign Answer Date Recorded Within the past 12 months, y ou worried that your food would run out before you got the money to buy more. Never true 10/15/19 25 Within the past 12 months, t he food you bought just didn't last and you didn't have money to get more. Never true 10/14/2024 PRAPARE - Transportation Answer Date Re corded In the past 12 months, has l ack of transportation kept you from medical appointments or from getting medications? No 09/16 In the past 12 months, has l ack of transportation kept you from meetings, work, or from getting things needed for daily living? No 10/14/2024 PHQ-9 Answer Date Recorded PHQ-9 Total Score 0 10/14/2024 Housing Stability Vital Sign Answer Markel e Recorded In the last 12 months, was t here a time when you were not able to pay the mortgage or rent on time? No 10/14/2024 In the past 12 months, how m any times have you moved where you were living? 1 10/14/2024 At any time in the past 12 m [facility], were you homeless or living in a care home (including now)? No 10/14/2024 AUDIT-C Answer Date Recorded Q1: How often do you have a drink containing alc ohol? 2-3 times a week 12/24/2024 Q2: How many drinks containi ng alcohol do you have on a typical day when you are drinking? 3 or 4 12/24/2024 Q3: How often do you have si x or more drinks on one occasion? Never 12/24/2024 Carmen Depression Scale Answer Date Recorded Carmen Depression Scale Total 11 11/25/2024 The thought of harming myself has occurred to me . Never 11/25/2024 Personal Safety Answer Date Recorded Have you ever been in or are you currently in a harmful physical or emotional relationship or is someone making you feel afraid or unsafe? Denies 12/24/2024 Comments No Sex and Gender Information Value Date Recorded Sex Assigned at Not on file Legal Sex Female 3:12 AM WHARF BUILDER Gender Identity Not on file Sexual Orientation Not on file Occupation Industry Job Start Date Job End Date Not on file Not on file Not on file Not on file Obstetrics History Para Term AB IAB SAB Ectopic Multiple Livin g Live Births 2 2 1 1 0 2 2 Date Outcome GA Total Labor Labor/2nd/3rd Weight Sex Type Anes PTL Xin A1 A5 Name Clin 2019 33w 0d 2.24 kg (4 lb 15 oz) F Vagina l Livin g 2024 Term 38w 1d 2h 20m 2h 15m/0h 03m/0h 02m 2.977 kg (6 lb 9 oz) F Vagina l None N Livin g 8 9 [place] e Dimitry mcclain, Tomy thurman Shira casiano MD Complications:Precipitous La bor (<3 hours) Delivery Location:[facility] Last Filed Vital Signs Vital Sign Reading Time Taken Comments Blood Pressure 116/72 12/31/2024 1:11 PM CDT Pulse 58 12/24/2024 10:32 AM CDT Temperature 36.1 C (97 F) 12/24/2024 10:32 AM CDT Respiratory Rate 18 12/24/2024 10:32 AM CDT Oxygen Saturation 97% 12/24/2024 10:32 AM CDT Inhaled Oxygen Concentration - - Weight 53.1 kg (117 lb) 12/31/2024 1:11 PM CDT Height 157.5 cm (5' 2) 12/24/2024 6:15 AM CDT Body Mass Index 21.4 12/24/2024 6:15 AM CDT Plan of Treatment Health Maintenance Due Date Last Done Comments Pneumococcal vaccine <65 (1 of 2 - PCV) 02/24/2016 Cervical Cancer Screening 08/02/2023 08/01/2022 Regular Well Visit/Exam 18-64 08/02/2023 08/01/2022, 07/30/2022 Varicella Vaccines (1 of 2 - 13+ 2-dose series) 11/13/2024 Influenza Vaccine (#1) 2024 , 05/19/2013, 06/04/2010 Depression Screening 11/25/2025 11/25/2024, 10/14/2024, 10/14/2024, Additional history exists DTaP/Tdap/Td Vaccine (9 - Td or Tdap) 08/10/2034 08/10/2024, 08/10/2019, 11/25/2008, Additional history exists Hepatitis B Screening Completed 01/26/1998 , 1997, 1997 HPV Vaccines Completed 06/04/2010, 01/15, 11/25/2008 Hepatitis C Screening Completed 04/27/2024 Procedures Procedure Name Priority Date/Time Associated Diagnosis Comments SURGICAL PATHOLOGY Routine 12/24/2024 10 :53 AM CDT Request for sterilization SD AN ELECTIVE ENDOTRACHEAL AIRWAY Routine 12/24/2024 8:19 AM CDT SALPINGECTOMY 12/24/2024 8:07 AM CDT Request for sterilization DIFFERENTIAL AUTO STAT 12/24/2024 6:3 3 AM CDT CBC WITH AUTO DIFFERENTIAL STAT 12/24/2024 6:33 AM CDT POCT HCG, URINE Routine 12/24/2024 6:21 AM CDT HEPATITIS C ANTIBODY Routine 04/27/2024 2:30 PM WHARF BUILDER Encounter for supervision of normal first in first trimester 13 weeks gestation of PAP WITH REFLEX TO HIGH RISK HPV Routine 08/01/2022 8:18 AM CDT Screening for malignant neoplasm of cervix from Last 3 Months or Most Recently Relevant to Health Maintenance Results * Surgical pathology (12/24/2024 10:53 AM CDT) Tissue (Fallopian tube, sterilization) 12/24/2024 8:26 AM CDT Narrative [facility] - 12/27/2024 11:11 AM CDT EPIC results best viewed via link to PDF [facility] Department of Pathology [address] [place] [id number] Note to Patients: This report may contain a detailed description of human tissue sent by a health care provider to the laboratory for pathologic evaluation. The content of this report is essential for diagnosis and may provide important critical findings. This information may be unfamiliar to patients to review without a medical professional present. It is advised that the patient review this report in the presence of a health care provider who can answer questions and explain the details. Final Report Patient Name: CHRISTAL HO [address] [place] [address] Gender: F : 1995 (Age: 29) Service: Surgery Location: [facility] Hospital #: [id number] Patient Type: [facility] Taken: 12/24/2024 Received: 12/24/2024 Accessioned: 12/24/2024 Reported: 12/27/2024 Physician(s):Janki Rooney D.O. Diagnosis: Bilateral fallopian tubes, laparoscopic salpingectomy: - Benign paratubal cyst (longer tube). - Otherwise unremarkable fallopian tubes (complete luminal cross-sections identified). Enoch Dougherty MD Report Electronically Reviewed and Signed Out By Enoch Dougherty MD 12/27/2024 11:11:51 Specimen(s) Received: A: Bilateral fallopian tubes Microscopic Description: Sections show a benign paratubal cyst on the longer fallopian tube. The fallopian tubes are otherwise unremarkable. Complete luminal cross-sections are identified. Clinical History: Request for sterilization. Laparoscopic salpingectomy. Gross Description: The specimen is submitted in a single formalin container labeled CHRISTAL HO and bilateral tubes. It consists of two segments of apparent fallopian tube measuring 3.8 and 5.0 cm in length by up to 0.8 cm in diameter. The fimbriated ends are present. The serosal surfaces are smooth and shiny and serial cross sections reveal no discrete gross abnormalities. Cross sections of each are submitted: shorter in block 1; longer in block 2. Chrystal Murphy R.N., P.A./Ramesh Bateman MD PhD REPORT IMAGES AND SCANNED DOCUMENTS, IF INCLUDED, ONLY VIEWABLE IN PDF VERSION OF REPORT The performance characteristics of some immunohistochemical stains, fluorescence in-situ hybridization tests and immunophenotyping by flow cytometry cited in this report (if any) were determined by the Surgical Pathology Department at [facility] as part of an ongoing quality manager program and in compliance with federally mandated regulations drawn from the Clinical Laboratory Improvement Act of 1988 (CLIA '88). Some of these tests rely on the use of analyte specific reagents and are subject to specific labeling requirements by the US Food and Drug Administration. Such diagnostic tests may only be performed in a facility that is certified by the Department of Health and Human Services as a high complexity laboratory under CLIA '88. The FDA has determined that such clearance or approval is not necessary. This test is used for clinical purposes. It should not be regarded as investigational or for research. Nevertheless, federal rules concerning the medical use of analyte specific reagents require that the following disclaimer be attached to the report: This test was developed and its performance characteristics determined by the Surgical Pathology Department [facility]. It has not been cleared or approved by the U. S. Food and Drug Administration. Note for decalcified specimens: This assay has not been validated on decalcified tissues. Results should be interpreted with caution given the possibility of false negativity on decalcified specimens Janki Rooney DO LAB PATHOLOGY ORDERABLE S Final Result Performing Organization Address City/State/RUST Co de Phone Number PATHOLOGY [facility] [address] [phone] * SD AN ELECTIVE ENDOTRACHEAL AIRWAY (12/24/2024 8:19 AM CDT) Narrative Enoch Davila CRNA - 12/24/2024 8:19 AM CDT Enoch Davila CRNA 12/24/2024 8:26 AM Airway Patient location: OR Urgency: elective Date/time: 12/24/2024 8:14 AM Indications for airway management: anesthesia Difficult airway: no Staff: Placed by: FOOD AND BEVERAGE ASSISTANT MANAGER: Enoch Davila CRNA Emergent airway documentation: Risks and benefits discussed: yes Consent obtained: yes Consent given by: patient Airway prep: Preoxygenated: yes Patient position: sniffing Mask difficulty assessment: 1 - vent by mask Spontaneous ventilation during airway: absent Sedation level during airway: GA Final airway details: Final airway type: endotracheal airway Tube type: ETT ETT size: 7.0 mm Cuffed: yes Technique used for successful ETT placement: video laryngoscopy Devices/Methods used in placement: stylet Insertion site: oral Video blade type: Lorenz Blade size: 3 Cormack-Lehane (video): grade I - full view of glottis Initial cuff pressure: 25 cm H2O Cuff inflated with: air ETT to teeth: 21 cm Placement verified by: auscultation and CO2 detection Airway secured with: silk tape Number of attempts: 2 Additional comments: Smooth, atraumatic intubation. us Shima Olson MD ANESTHESIA ORDERABLES Ed ited Result - Final * Differential, auto (12/24/2024 6:33 AM CDT) Neutrophil abs 3.64 1.50 - 6.50 K/cumm Imm gran abs 0.01 0.00 - 0.10 K/cumm [facility] Lymphocyte abs 1.33 0.80 - 3.30 K/cumm [facility] Monocyte abs 0.47 0.20 - 0.80 K/cumm [facility] Eosinophil abs 0.07 0.00 - 0.50 K/cumm [facility] Basophil abs 0.04 0.00 - 0.10 K/cumm [facility] Neutrophil pct 65.4 % [facility] Comment: Interpretive Data Percent cell count reference ranges are not reported, since discordance with absolute values may lead to misinterpretation of CBC data. Current Interpretive Data was last revised on 2017. Imm gran pct 0.2 % [facility] Comment: Interpretive Data Percent cell count reference ranges are not reported, since discordance with absolute values may lead to misinterpretation of CBC data. Current Interpretive Data was last revised on 2017. Lymphocyte pct 23.9 % [facility] Comment: Interpretive Data Percent cell count reference ranges are not reported, since discordance with absolute values may lead to misinterpretation of CBC data. Current Interpretive Data was last revised on 2017. Monocyte pct 8.5 % [facility] Comment: Interpretive Data Percent cell count reference ranges are not reported, since discordance with absolute values may lead to misinterpretation of CBC data. Current Interpretive Data was last revised on 2017. Eosinophil pct 1.3 % [facility] Comment: Interpretive Data Percent cell count reference ranges are not reported, since discordance with absolute values may lead to misinterpretation of CBC data. Current Interpretive Data was last revised on 2017. Basophil pct 0.7 % [facility] Comment: Interpretive Data Percent cell count reference ranges are not reported, since discordance with absolute values may lead to misinterpretation of CBC data. Current Interpretive Data was last revised on 2017. Blood 12/24/2024 6:33 AM CDT 12/24/2024 6:39 AM CDT Janki Rooney DO LAB BLOOD ORDERABLES Fi nal Result [facility] Department [place] [address] * (ABNORMAL) CBC with auto differential (12/24/2024 6:33 AM CDT) WBC 5.56 3.80 - 9.90 K/cumm Hgb 14.4 11.9 - 15.5 g/dL [facility] Hct 43.5 35.6 - 45.5 % [facility] Plt 227 150 - 400 K/cumm [facility] MPV 9.6 9.1 - 12.3 fL [facility] RBC 5.33(H) 3.90 - 5.20 M/cumm [facility] MCV 81.6 81.3 - 96.4 fL [facility] MCH 27.0(L) 27.1 - 33.3 pg [facility] MCHC 33.1 32.3 - 35.7 g/dL [facility] RDW CV 17.1(H) 11.1 - 14.9 % [facility] RDW SD 50.8(H) 35.7 - 48.1 fL [facility] NRBC abs 0.00 0.00 - 0.01 K/cumm [facility] Blood 12/24/2024 6:33 AM CDT 12/24/2024 6:39 AM CDT Janki Rooney DO LAB BLOOD ORDERABLES Fi nal Result [facility] ([facility] Department [place] [address] * POCT hCG, urine (12/24/2024 6:21 AM CDT) HCG, ur, POC Negative Negative Lot Number [id number] QC Backgroud Clear Acceptable QC Control Line Acceptable Urine 12/24/2024 6:21 AM CDT Janki Rooney DO POINT OF CARE TEST ORDE RABLES Final Result * Hepatitis C antibody Blood (04/27/2024 2:30 PM WHARF BUILDER) Hep C Ab Nonreactive Nonreactive Comment: Interpretive Data Nonreactive: Antibodies to HCV not detected. Does NOT exclude the possibility of recent exposure to HCV. Equivocal: Equivocal for HCV antibodies. Supplemental molecular testing will be automatically performed to determine infection status in accordance with current CDC screening recommendations. Reactive: Positive for HCV antibodies. This may represent current or past HCV infection. Supplemental molecular testing will be automatically performed to determine current infection status in accordance with current CDC screening recommendations. Interpretive data was last revised on 2019. Testing performed by: [facility], [address] [place] [address]., [id number] Blood 04/27/2024 2:30 PM WHARF BUILDER 04/27/2024 6:49 PM WHARF BUILDER Janki Rooney DO LAB MICROBIOLOGY - GENE RAL ORDERABLES Final Result [facility] [address] [facility] Department [place] [address] * Pap with reflex to High Risk HPV (08/01/2022 8:18 AM CDT) Thin prep (Pap test) 08/01/2022 8:18 AM CDT 08/01/2022 8:18 AM CDT Narrative PATHOLOGY [facility] - 08/05/2022 12:59 PM CDT [facility] Department of Pathology [address] [place] [id number] Final Report Note to Patients: This report may contain a detailed description of human tissue sent by a health care provider to the laboratory for pathologic evaluation. The content of this report is essential for diagnosis and may provide important critical findings. This information may be unfamiliar to patients to review without a medical professional present. It is advised that the patient review this report in the presence of a health care provider who can answer questions and explain the details. Patient Name: CHRISTAL HO [address]: [address] [place] [address] Gender: F : 1995 (Age: 27) Service: Location: N : [id number] Hospital #: [id number] Patient Type: SPECIMEN Taken: 08/01/2022 Received: 08/01/2022 Accessioned:: 08/02/2022 Reported: 08/05/2022 Physician(s): Madhu Biggs D.O. Diagnosis: SOURCE OF SPECIMEN Imaged Thinprep Pap Test w/ Reflex HPV - Engineering Group Leader Cytologic Material: STATEMENT OF ADEQUACY - Satisfactory for evaluation; endocervical/transformation zone component present - This case was rejected by computer assisted technology and was manually screened by a resource room teacher GENERAL CATEGORIZATION: - Negative for intraepithelial lesion or malignancy INTERPRETATION: - Predominance of coccobacilli consistent with shift in vaginal дмитрий. Possible bacterial vaginosis PHONG Toribio(ASCP) Report Electronically Reviewed and Signed Out By PHONG Toribio(ASCP) 08/05/2022 12:59:20Specimen(s) Received: A: Imaged Thinprep Pap Test w/ Reflex HPV - Engineering Group Leader Cytologic Material Clinical History: Last Menstrual Period: 07/09/22 The Pap test is a screening test used to aid in the detection of cervical cancer and its precursors. It should not be the sole means by which malignant and premalignant lesions are diagnosed. Both false negative and false positive results may occur. It also has poor sensitivity for the detection of endometrial lesions and should not be used to evaluate suspected endometrial abnormalities. For these reasons it is most important to obtain Pap tests at regular intervals. The performance characteristics of some immunohistochemical stains, fluorescence in-situ hybridization tests and immunophenotyping by flow cytometry cited in this report (if any) were determined by the Surgical Pathology Department at [facility] as part of an ongoing quality manager program and in compliance with federally mandated regulations drawn from the Clinical Laboratory Improvement Act of 1988 (CLIA '88). Some of these tests rely on the use of analyte specific reagents and are subject to specific labeling requirements by the US Food and Drug Administration. Such diagnostic tests may only be performed in a facility that is certified by the Department of Health and Human Services as a high complexity laboratory under CLIA '88. The FDA has determined that such clearance or approval is not necessary. This test is used for clinical purposes. It should not be regarded as investigational or for research. Nevertheless, federal rules concerning the medical use of analyte specific reagents require that the following disclaimer be attached to the report: This test was developed and its performance characteristics determined by the Surgical Pathology Department [facility]. It has not been cleared or approved by the U. S. Food and Drug Administration. Janki Rooney DO LAB CYTOLOGY ORDERABLES Final Result [facility] [id number] [place] [address] from Last 3 Months or Most Recently Relevant to Health Maintenance Insurance [facility]ICE [facility] PPO [place] [employer] [facility] Advance Directives For more information, please contact: [phone] * Full Code (Latest Code Status on File) Date Activated Date Inactivated Comments 10/15/2024 12:22 AM 10/16/2024 4:30 PM * Full Code Date Activated Date Inactivated Comments 10/14/2024 9:02 PM 10/15/2024 12:22 AM Full CPR in case of cardiopulmonary arrest Care Teams Automotive Service Writer Relationship Specialty Start Date End Date Cori Parkinson MD [address] [id number] PCP - General Family Practice 07/29/22 Janki Rooney DO [address] [id number] Consulting Physician Obstetrics and Gynecology 10/16/24
[2025-03-03 09:01] LABS: EDSTREPNEGPOS1 Negative (Negative)
--- NOTE | 2025-03-03 09:23 | ED.URI ---
HPI - URI/Sore Throat General Chief Complaint: Upper Respiratory Infection Stated Complaint: Sore Throat Time Seen by Provider: 03/03/25 09:00 Source: patient and RN notes reviewed Mode of arrival: ambulatory Limitations: no limitations History of Present Illness HPI Narrative: 30-year-old female presents Express Care complaining of upper respiratory symptoms for 4 days. Patient reports cough, congestion, runny nose, sore throat. Patient has any fevers advice, chills, chest pain, breathing problems, or any other symptoms. Patient been taking Tylenol ibuprofen to help with symptoms. Patient is currently . Related Data Home Medications ?Medication ?Instructions ?Recorded ?Confirmed ?Last Taken ?Type No Home Medications 03/03/25 03/03/25 Unknown History Allergies Allergy/AdvReac Type Severity Reaction Status Date / Time No Known Allergies Allergy Verified 03/03/25 08:48 Review of Systems Review of Systems: CONSTITUTIONAL: Denies fever, chills, or sweats. EYES: Denies visual changes, redness, or discharge. ENT: Positive for rhinorrhea, congestion, sore throat. Negative for otalgia. CARDIOVASCULAR: Denies chest pain, palpitations, or edema. RESPIRATORY: Positive for cough. Negative for wheezing Or dyspnea. GASTROINTESTINAL: Denies abdominal pain, nausea, vomiting, or diarrhea. GENITOURINARY: Denies dysuria or hematuria. SKIN: Denies rash or itching. MUSCULOSKELETAL: Denies back pain, joint pain, or myalgia. NEUROLOGIC: Denies headache, numbness, or weakness. PSYCHIATRIC: Denies anxiety or depression. All other systems reviewed are negative, except as documented in HPI. [facility] Past Medical History Medical History No pertinent past medical history Surgical History Surgical History No pertinent past surgical history Family History Family History Mother Family history non-contributory Social History Social History Smoking status: Current every day smoker Alcohol intake: current Alcohol use details: Alcohol on the weekends. 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 There is no relevant family history pertinent to the patient complaint. Exam Narrative: GENERAL: This is a well-nourished, well-developed adult, in no apparent distress. They are non ill-appearing, nontoxic appearing. HEAD: normocephalic, atraumatic. EYES: Sclera clear/white. Conjunctiva normal. Vision is grossly intact. Extraocular movements intact EARS: External ears normal, auditory canals clear and without drainage, TMs normal without perforation. Hearing grossly intact. NOSE: External nose normal with no obvious nasal discharge, nasal turbinates erythematous with rhinorrhea. THROAT: Mucous membranes moist, posterior pharynx erythematous with PND. Uvula midline. NECK: Neck supple, non-tender without lymphadenopathy, masses or thyromegaly. CARDIOVASCULAR: Regular rate and rhythm without murmurs, gallops, or rubs. RESPIRATORY: Clear to auscultation. Breath sounds equal bilaterally. No wheezes, rales, or rhonchi. SKIN: warm, Dry, intact with no suspicious lesions or rash, good texture and turgor. NEURO: awake, alert, and oriented to person, place and time. There were no obvious focal neurologic abnormalities. EXTREMITIES: No joint tenderness, effusion, or edema noted. BACK: Nontender without deformity. No CVA tenderness. Course Course Level of Care: Express Care Visit Vital Signs Vital signs: Vital Signs Temperature 97.7 F 03/03/25 08:42 Pulse Rate 93 03/03/25 08:42 Respiratory Rate 16 03/03/25 08:42 Blood Pressure 125/89 03/03/25 08:42 Pulse Oximetry 99 03/03/25 08:42 Oxygen Delivery Room Air 03/03/25 08:42 Temperature 97.7 F 03/03/25 08:42 Pulse Rate 93 03/03/25 08:42 Respiratory Rate 16 03/03/25 08:42 Blood Pressure 125/89 03/03/25 08:42 Pulse Oximetry 99 03/03/25 08:42 Oxygen Delivery Room Air 03/03/25 08:42 [facility] MDM Narrative Medical decision making narrative: Rapid strep negative. A throat culture is pending. Symptoms likely viral in etiology. Discussed supportive care. Discussed physical exam findings. Advised supportive measures and signs/symptoms to go to the ER. Pt is appropriate for outpt treatment and f/u. Differential Diagnosis Differential Diagnosis: Differential diagnostic considerations for upper respiratory infection include upper respiratory infection, croup, otitis media, sinusitis, viral infection, bronchitis, influenza, pharyngitis, strep, uvulitis. Lab Data MDM Lab Attestation statement: I personally reviewed the patient's lab results. Labs: Lab Results 03/03/25 Range/Units 08:48 POC Grp A Strep Screen Negative (Negative) Critical Care Time Critical Care Time Critical Care Time: No Discharge Plan Discharge Clinical Impression: Upper respiratory infection Qualifiers: URI type: unspecified viral URI Qualified Code(s): J06.9 - Acute upper respiratory infection, unspecified Patient Disposition: Home Condition: Stable Instructions: Antibiotic Form, Upper Respiratory Infection (ED) Additional Instructions: Your rapid strep swab was negative today at [facility]. You will be notified in a few days if the culture comes back positive for strep, and appropriate antibiotics will be called in for you at that time. Your symptoms are likely due to a viral illness, which is not treated with antibiotics. Viral symptoms can be present for up to 10-14 days. Take Tylenol or ibuprofen for fever or pain follow instructions on the bottle. Rest and stay hydrated. Follow up with your PCP in 5-7 days if symptoms are not improving. Go to the ER immediately if you developed chest pain, difficulty breathing or swallowing vomiting, or any serious concerns. Patient Language: French Prescriptions: No Action No Home Medications Follow-up/Referrals: PHYSICIAN,HEALTH TECHNICAL WRITER [Primary Care Provider, Internal Medicine] Time of Disposition: 09:21
== END 2025-03-03 09:29 | disposition home or self-care (01) ==
DX: J06.9 Acute upper respiratory infection, unspecified (principal); F17.200 Nicotine dependence, unspecified, uncomplicated; F12.90 Cannabis use, unspecified, uncomplicated
CPT/HCPCS: 87081; 87880; 99213; G0463